=== PATIENT | female | born 1975 | race African-American/Black ===

== ENCOUNTER 2018-02-19 02:29 | Emergency (ER) | payer MEDICAID ==
[~2018-02-19] VITALS: Ht 170.2 cm; Wt 69.0 kg
[~2018-02-19 02:29] MED LIST: FERR325T6 PO
[2018-02-19] MEDS ORDERED: SODIUM CHLORIDE 0.9% 1,000 ML IV ONE (03:21)
[2018-02-19 03:36] LABS: BASOPHILS % 1.9 % (0.0-2.0); EOSINOPHILS % 1.7 % (0.0-5.0); HEMATOCRIT. 27.5 % (36.0-48.0); HEMOGLOBIN. 8.6 g/dL (12.0-16.0); MEAN CORPUSCULAR HEMOGLOBIN 21.8 pg (28.0-32.0); MEAN CORPUSCULAR VOLUME 69.4 fL (81.0-99.0); MEAN PLATELET VOLUME 10.5 fl (7.4-10.4); MONOCYTES % 6.8 % (2.0-8.0); NEUTROPHILS % 67.6 % (40.0-76.0); PLATELET 171 x1000/uL (130-400); RED BLOOD CELL COUNT 3.97 mill/uL (4.2-5.4); RED CELL DISTRIBUTION WIDTH 19.7 % (11.6-14.6)
[2018-02-19 03:42] LABS: CHLORIDE 106 mEq/L (98-107)
[2018-02-19 03:43] LABS: PROTHROMBIN TIME 10.9 sec (9.4-11.6)
[2018-02-19 03:54] LABS: B-HCG QUANTITATIVE < 1 mIU/mL (<3)
[2018-02-19 05:07] LABS: EOSINOPHILS % 2.3 % (0.0-5.0); HEMOGLOBIN. 8.1 g/dL (12.0-16.0); LYMPHOCYTES % 26.2 % (20.0-50.0); MEAN CORPUSCULAR HEMOGLOBIN 21.5 pg (28.0-32.0); MEAN CORPUSCULAR VOLUME 68.9 fL (81.0-99.0); MEAN PLATELET VOLUME 9.3 fl (7.4-10.4); MONOCYTES % 5.6 % (2.0-8.0); NEUTROPHILS % 63.9 % (40.0-76.0); PLATELET 167 x1000/uL (130-400); RED BLOOD CELL COUNT 3.77 mill/uL (4.2-5.4); RED CELL DISTRIBUTION WIDTH 19.6 % (11.6-14.6)
[2018-02-19 06:16] VITALS: BP 120/77
[2018-02-19 06:48] LABS: PLATELET ESTIMATE NORMAL
== END 2018-02-19 06:36 | disposition home or self-care (01) ==
LOC: ER 02:29 → CANBEDREQ 06:13 → ER 06:36
DX: D25.9 Leiomyoma of uterus, unspecified (principal); N39.3 Stress incontinence (female) (male); D64.9 Anemia, unspecified; F17.200 Nicotine dependence, unspecified, uncomplicated
CPT/HCPCS: 36415; 80053; 83690; 84702; 85025; 85610; 86850; 86900; 86901; 93005; 96360; 96361; 99285; J7030; Z7610

== ENCOUNTER 2021-10-10 02:15 | Emergency (ER) | payer MEDICAID ==
[~2021-10-10] VITALS: Ht 170.2 cm; Wt 71.0 kg
[2021-10-10] MEDS ORDERED: AMOXICILLIN/POTASSIUM CLAVULANATE 875/125MG TAB PO ONE (03:00)
[2021-10-10] MEDS ORDERED: ACETAMINOPHEN 325MG TABLET PO ONE (03:00)
[2021-10-10] MEDS ORDERED: IBUPROFEN 400MG TABLET PO ONE (03:00)
[2021-10-10] MEDS ORDERED: AMOX-424 MT (03:08)
[2021-10-10] MEDS ORDERED: TOPUD MT (03:08)
[2021-10-10 03:11] VITALS: BP 128/89
== END 2021-10-10 03:59 | disposition home or self-care (01) ==
LOC: ER 02:15
DX: K04.7 Periapical abscess without sinus (principal); F17.200 Nicotine dependence, unspecified, uncomplicated; Z98.890 Other specified postprocedural states
CPT/HCPCS: 81025; 99284